=== PATIENT | male | born 1955 | race Caucasian/White ===

== ENCOUNTER → 2016-07-10 | Outpatient (CLI) | payer OTHER ==
--- NOTE | 2016-07-10 09:34 | US ---
Right Upper Quadrant Abdominal Sonogram History: Possible gallstones, RUQ pain, R10.11, prostate cancer Findings: There are no gallstones, gallbladder wall thickening or pericholecystic fluid. The liver is coarsely echogenic and retards sound suggesting fatty infiltration. It is mildly enlarged measuring 22.8 cm in length., There is no intra or extrahepatic biliary dilatation. There are 2 small hepatic s imple cysts. The anterior liver capsule is smooth. There is normal portal venous and hepatic vein ant egrade flow. The right kidney is unremarkable. There is no right upper quadrant free fluid. The pancreas is echoge rebeka proximally. The distal pancreas is obscured by bowel gas. Impression: Normal study. 1. Mild hepatomegaly with findings suggesting steatosis. 2. Normal gallbladder.
== END ==
LOC: BRMIMAGING 08:33
PROVIDERS: ATTEND Registered Nurse
DX: R10.11 Right upper quadrant pain (principal); C61 Malignant neoplasm of prostate
CPT/HCPCS: 76705-PO